=== PATIENT | female | born 1990 | race Caucasian/White ===

== ENCOUNTER 2021-09-19 13:48 | Emergency (ER) | payer SELFPAY ==
--- NOTE | 2021-09-19 14:45 | RAD REPORT ---
EXAM DESCRIPTION: Lorenza Harris (2 Views)09/19/2021 2:35 pm CLINICAL HISTORY: Cough COMPARISON: None FINDINGS: The lungs appear clear of acute infiltrate. The heart is normal size IMPRESSION: No acute abnormalities displayed
[2021-09-19 15:06] LABS: SARS-COV-2 RT PCR NEGATIVE (NEGATIVE)
--- NOTE | 2021-09-19 15:07 | ER ---
Nurse's Notes [facility] Name: Jhoana Em Age: 31 yrs Sex: Female : 1990 Arrival Date: 09/19/2021 Time: 13:51 Bed Waiting Private MD: Diagnosis: Acute upper respiratory infection, unspecified Presentation: 09/19 13:58 Chief complaint: Patient states: has had cold for a couple days and now feels heaviness iw in her chest and is coughing up green phlegm. Coronavirus screen: Client presents with at least one sign or symptom that may indicate coronavirus-19. Ebola Screen: Patient negative for fever greater than or equal to 101.5 degrees Fahrenheit, and additional compatible Ebola Virus Disease symptoms Patient denies exposure to infectious person. Patient denies travel to an Ebola-affected area in the 21 days before illness onset. No symptoms or risks identified at this time. Initial Sepsis Screen: Does the patient meet any 2 criteria? No. Patient's initial sepsis screen is negative. Does the patient have a suspected source of infection? No. Patient's initial sepsis screen is negative. Risk Assessment: Do you want to hurt yourself or someone else? Patient reports no desire to harm self or others. Onset of symptoms was September 17, 2021. 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 - Social history:: Smoking status: Patient/guardian denies using tobacco, the patient reports quitting approximately 10 years ago, Patient uses street drugs, marijuana. Screenin:08 Abuse screen: Denies threats or abuse. Denies injuries from another. Nutritional iw screening: No deficits noted. Tuberculosis screening: No symptoms or risk factors identified. Fall Risk None identified. Assessment: 14:07 General: Appears in no apparent distress. Behavior is calm, cooperative. Pain: iw Complains of pain in chest. Cardiovascular: Patient's skin is warm and dry. Respiratory: Reports cough that is Airway is patent Respiratory effort is even, unlabored, Respiratory pattern is regular, symmetrical, Breath sounds are clear bilaterally. Derm: Skin is intact, is healthy with good turgor. Musculoskeletal: Range of motion: intact in all extremities. Vital Signs: 13:58 BP 104 / 76; Pulse 85; Resp 18; Temp 97.6; Pulse Ox 100% on R/A; Weight 75.75 kg; iw Height 5 ft. 3 in. (160.02 cm); 13:58 Body Mass Index 29.58 (75.75 kg, 160.02 cm) iw ED Course: 13:51 Patient arrived in ED. mr 13:57 Aleyda Shah FNP-C is PHCP. kb 13:57 Ramos Otero MD is Attending Physician. kb 14:00 Triage completed. iw 14:02 Arm band placed on. iw 14:35 Chest Pa And Lat (2 Views) XRAY In Process Unspecified. EDMS 15:12 Cassi Friedman, RN is Primary Nurse. iw Administered Medications: No medications were administered Outcome: 15:07 Discharge ordered by . kb 15:12 Patient left the ED. iw Signatures: Dispatcher [employer] EDMS Aleyda Shah FNP-C FNP-Jovanny Sneha Whelan mr Cassi Friedman, RN RN iw
--- NOTE | 2021-09-19 15:08 | EDPHYS ---
Physician Documentation [facility] Name: Jhoana Em Age: 31 yrs Sex: Female : 1990 Arrival Date: 09/19/2021 Time: 13:51 Bed Waiting Private MD: ED Physician Ramos Otero HPI: 09/19 15:24 This 31 yrs old Female presents to ER via Ambulatory with complaints of Congestion, kb Cough. 15:24 The patient or guardian reports cough, that is intermittent, described as moderate. kb Onset: The symptoms/episode began/occurred yesterday. Severity of symptoms: At their worst the symptoms were moderate, in the emergency department the symptoms are unchanged. Modifying factors: The symptoms are alleviated by nothing, the symptoms are aggravated by nothing. Associated signs and symptoms: Pertinent positives: rhinorrhea, Pertinent negatives: chest pain, diarrhea, ear ache, fever, nausea, sore throat, vomiting. The patient has not experienced similar symptoms in the past. The patient has not recently seen a physician. Pt states she has had cough and congestion since yesterday. States she was coughing stuff up today so she wanted to make sure she didn't have pneumonia . 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 - Social history:: Smoking status: Patient/guardian denies using tobacco, the patient reports quitting approximately 10 years ago, Patient uses street drugs, marijuana. ROS: 15:24 Constitutional: Negative for fever, chills, and weight loss. kb 15:24 ENT: Positive for rhinorrhea, sinus congestion. 15:24 Respiratory: Positive for cough, Negative for dyspnea on exertion, hemoptysis, orthopnea, pleurisy, shortness of breath, sputum production, wheezing. 15:24 All other systems are negative. Exam: 15:24 Constitutional: This is a well developed, well nourished patient who is awake, alert, kb and in no acute distress. Head/Face: Normocephalic, atraumatic. ENT: Moist Mucous membranes Cardiovascular: Regular rate and rhythm with a normal S1 and S2. No gallops, murmurs, or rubs. No pulse deficits. Respiratory: Respirations even and unlabored. No increased work of breathing, no retractions or nasal flaring. Skin: Warm, dry with normal turgor. Normal color. MS/ Extremity: Pulses equal, no cyanosis. Neurovascular intact. Full, normal range of motion. Neuro: Awake and alert, GCS 15, oriented to person, place, time, and situation. Moves all extremities. Normal gait. Psych: Awake, alert, with orientation to person, place and time. Behavior, mood, and affect are within normal limits. Vital Signs: 13:58 BP 104 / 76; Pulse 85; Resp 18; Temp 97.6; Pulse Ox 100% on R/A; Weight 75.75 kg; iw Height 5 ft. 3 in. (160.02 cm); 13:58 Body Mass Index 29.58 (75.75 kg, 160.02 cm) iw MDM: 14:06 Patient medically screened. kb 15:22 Data reviewed: vital signs, nurses notes. Data interpreted: Pulse oximetry: on room air kb is 100 %. Interpretation: normal. Counseling: I had a detailed discussion with the patient and/or guardian regarding: the historical points, exam findings, and any diagnostic results supporting the discharge/admit diagnosis, lab results, radiology results, the need for outpatient follow up, a family practitioner, to return to the emergency department if symptoms worsen or persist or if there are any questions or concerns that arise at home. 09/19 14:07 Order name: COVID-19/FLU A+B (Document "Date of Onset" if Symptomatic) kb 09/19 14:08 Order name: COVID-19/FLU A+B; Complete Time: 15:07 EDMS 09/19 14:07 Order name: Chest Pa And Lat (2 Views) XRAY; Complete Time: 14:47 kb Administered Medications: No medications were administered Disposition: 17:58 Co-signature as Attending Physician, Ramos Otero MD I agree with the assessment and kdr plan of care. Disposition Summary: 09/19/21 15:07 Discharge Ordered Location: Home kb Condition: Stable kb Diagnosis - Acute upper respiratory infection, unspecified kb Followup: kb - With: Emergency Department - When: As needed - Reason: Worsening of condition Followup: kb - With: Private Physician - When: 2 - 3 days - Reason: Recheck today's complaints, Continuance of care, Re-evaluation by your physician Discharge Instructions: - Discharge Summary Sheet kb - Upper Respiratory Infection, Adult, [id number] kb - Viral Respiratory Infection, [id number] kb Forms: - Medication Reconciliation Form kb - Thank You Letter kb - Antibiotic Education kb - Prescription Opioid Use kb Signatures: Dispatcher [employer] EDAleyda Raymond, BOB-Colin ROJAS-Ramos Jacques MD MD kdr Williams, Irene, RN RN iw
[2021-09-19 15:46] VITALS: BP 104/76; TEMP 97.6; O2SAT 100
== END 2021-09-19 15:12 | disposition home or self-care (01) ==
LOC: ER 13:48
DX: J06.9 Acute upper respiratory infection, unspecified (principal); Z88.3 Allergy status to other anti-infective agents; Z20.822 Contact with and (suspected) exposure to COVID-19
CPT/HCPCS: 0240U; 71046; 99282

== ENCOUNTER 2021-09-21 23:21 | Emergency (ER) | payer SELFPAY ==
[2021-09-22] MEDS ORDERED: NA CHLORIDE 0.9% 1,000 ML ONE (01:38)
[2021-09-22] MEDS ORDERED: ALBUTEROL 2.5 MG/3 ML NEB SOL ONE (01:38)
[2021-09-22] MEDS ORDERED: IPRATROPIUM BROM 0.5MG/2.5ML ONE (01:38)
[2021-09-22 01:53] LABS: Protime INR 1.23
[2021-09-22 01:55] LABS: Absolute Lymphocytes (CBC) 1.2 K/uL (0.7-4.9); Hematocrit 42.3 % (36.0-45.0); Lymphocytes % 24.1 % (15.3-44.8); MPV 8.3 fL (7.6-11.3); RBC Red Blood Cell Count 4.92 M/uL (3.86-4.86)
[2021-09-22 02:09] LABS: Urine Blood Trace-intact (Negative); Urine Glucose Trace (Negative); Urine Protein Trace (Negative); Urine Specific Gravity 1.025 (1.005-1.030); Urine pH 6.5 (5.0-7.0)
[2021-09-22 02:22] LABS: ALT/SGPT 52 U/L (12-78); AST/SGOT 24 U/L (15-37); Alkaline Phosphatase 96 U/L (45-117); BUN Blood Urea Nitrogen 10 mg/dL (7-18); Bicarbonate 23 mmol/L (21-32); Bilirubin Direct 0.2 mg/dL (0-0.2); Bilirubin Total 0.4 mg/dL (0.2-1.0); Glucose Level 91 mg/dL (74-106); Magnesium 2.2 mg/dL (1.8-2.4); NT PRO-BNP 30 pg/mL (<125); Potassium 3.2 mmol/L (3.5-5.1); Sodium Level 138 mmol/L (136-145); Troponin (Emerg Dept Use Only) < 0.02 ng/mL (0.0-0.045)
[2021-09-22 02:54] LABS: Urine Specific Gravity/Preg 1.025 (1.005-1.030)
[2021-09-22] MEDS ORDERED: D5 0.9 NS 1,000 ML IV ONE (03:05)
[2021-09-22] MEDS ORDERED: CEFTRIAXONE 1000 MG/VIAL ONE (04:02)
[2021-09-22] MEDS ORDERED: POTASSIUM CL SA 10 MEQ TAB PO ONE (04:02)
[2021-09-22] MEDS ORDERED: AZITHROMYCIN 500 MG INJ IVPB ONE (04:03)
[2021-09-22] MEDS ORDERED: NA CHLORIDE 0.9% 250 ML ONE (04:03)
[2021-09-22] MEDS ORDERED: ONDANSETRON 4 MG/2 ML VIAL ONE (04:38)
--- NOTE | 2021-09-22 04:56 | ER ---
Nurse's Notes [facility] Name: Jhoana Em Age: 31 yrs Sex: Female : 1990 Arrival Date: 09/21/2021 Time: 23:48 Bed 18 Private MD: Diagnosis: Pneumonia;Hypokalemia Presentation: 09/22 00:08 Chief complaint: Patient states: Returning tonight for worsening cough, productive, lp1 brown flem, pain with breathing, and reported right arm heaviness; States seen here 2 days ago and diagnosed with URI. Coronavirus screen: The client reports previous COVID testing was negative. Date of collection: September 19, 2021. Ebola Screen: No symptoms or risks identified at this time. Risk Assessment: Do you want to hurt yourself or someone else? Patient reports no desire to harm self or others. Onset of symptoms was September 22, 2021. 00:08 Method Of Arrival: Ambulatory lp1 00:08 Acuity: JEANNETTE 3 lp1 00:10 Initial Sepsis Screen: Does the patient meet any 2 criteria? No. Patient's initial kc4 sepsis screen is negative. Does the patient have a suspected source of infection? No. Patient's initial sepsis screen is negative. Triage Assessment: 04:26 General: Appears uncomfortable, obese, well groomed, Behavior is calm, cooperative, kc4 appropriate for age. Respiratory: No deficits noted. Respiratory: Reports pain with cough Airway is patent Trachea midline Respiratory effort is even, unlabored. GI: No deficits noted. No signs and/or symptoms were reported involving the gastrointestinal system. : No deficits noted. No signs and/or symptoms were reported regarding the genitourinary system. Derm: No deficits noted. No signs and/or symptoms reported regarding the dermatologic system. Musculoskeletal: No deficits noted. No signs and/or symptoms reported regarding the musculoskeletal system. 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 - Social history:: Smoking status: Patient denies any tobacco usage or history of. Patient uses street drugs, marijuana. Screenin:10 Abuse screen: Denies threats or abuse. Denies injuries from another. Nutritional lp1 screening: No deficits noted. Tuberculosis screening: No symptoms or risk factors identified. Fall Risk None identified. Assessment: 02:12 Pain: Complains of pain in generalized Pain does not radiate. Pain currently is 5 out kc4 of 10 on a pain scale. at worst was 5 out of 10 on a pain scale. level that patient reports is acceptable is 0 out of 10 on a pain scale. Quality of pain is described as pressure, Pain began gradually, 2-3 days ago. Is episodic, Alleviated by medications, rest, Aggravated by exercise, increased activity, Noted to be restless. Neuro: No deficits noted. Level of Consciousness is awake, alert, obeys commands, confused, Oriented to person, place, time, situation, Appropriate for age. Respiratory: Airway is patent Respiratory effort is even, labored, with nasal flaring, Respiratory pattern is tachypnea Sputum is blood streaked, Breath sounds with crackles bilaterally. Breath sounds with wheezes Onset: The symptoms/episode began/occurred gradually, the patient has moderate shortness of breath Denies air hunger. GI: No deficits noted. No signs and/or symptoms were reported involving the gastrointestinal system. : No deficits noted. No signs and/or symptoms were reported regarding the genitourinary system. EENT: No deficits noted. No signs and/or symptoms were reported regarding the EENT system. Derm: No deficits noted. No signs and/or symptoms reported regarding the dermatologic system. Musculoskeletal: No deficits noted. No signs and/or symptoms reported regarding the musculoskeletal system. 02:12 Cardiovascular: Rhythm is sinus rhythm. kc4 04:27 Reassessment: Patient and/or family updated on plan of care and expected duration. Pain kc4 level reassessed. Patient is alert, oriented x 3, equal unlabored respirations, skin warm/dry/pink. Patient states symptoms have improved. Vital Signs: 00:11 BP 124 / 84; Pulse 64; Resp 20; Temp 98(O); Pulse Ox 99% on R/A; Weight 75.75 kg (R); lp1 Height 5 ft. 3 in. (160.02 cm); 02:20 BP 110 / 81; Pulse 88; Resp 22; Temp 98.7(O); Pulse Ox 100% on R/A; Pain 4/10; kc4 03:30 BP 108 / 81; Pulse 76; Resp 18; Temp 98.7(O); Pulse Ox 100% on R/A; Pain 0/10; kc4 04:25 BP 118 / 78; Pulse 78; Resp 18; Temp 98.7(O); Pulse Ox 100% on R/A; Pain 0/10; kc4 05:00 BP 121 / 76; Pulse 80; Resp 18; Temp 98.9(O); Pulse Ox 99% on R/A; Pain 0/10; kc4 00:11 Body Mass Index 29.58 (75.75 kg, 160.02 cm) lp1 [place] Coma Score: 02:12 Eye Response: spontaneous(4). Verbal Response: oriented(5). Motor Response: obeys kc4 commands(6). Total: 15. ED Course: 09/21 23:48 Patient arrived in ED. cf2 09/22 00:10 Triage completed. lp1 00:10 Arm band placed on. lp1 01:03 Jerad Nicole MD is Attending Physician. 7 01:09 Charlette Mendez is Primary Nurse. kc4 01:37 Basic Metabolic Panel Sent. mw2 01:37 CBC with Diff Sent. mw2 01:37 LFT's Sent. mw2 01:37 Magnesium Sent. mw2 01:37 NT PRO-BNP Sent. mw2 01:37 PT-INR Sent. mw2 01:37 Troponin (emerg Dept Use Only) Sent. mw2 02:00 Basic Metabolic Panel Sent. kc4 02:00 Inserted saline lock: 20 gauge in right antecubital area, using aseptic technique. kc4 Blood collected. 02:01 CBC with Diff Sent. kc4 02:01 LFT's Sent. kc4 02:01 Magnesium Sent. kc4 02:01 NT PRO-BNP Sent. kc4 02:01 PT-INR Sent. kc4 02:01 Troponin (emerg Dept Use Only) Sent. kc4 02:12 Patient has correct armband on for positive identification. Placed in gown. Bed in low kc4 position. Call light in reach. Side rails up X 1. compliance monitor on. Pulse ox on. NIBP on. Door closed. Noise minimized. Warm blanket given. 02:20 Nebulizer treatment administered. kc4 02:46 CT Chest For PE Angio In Process Unspecified. EDMS 04:24 Blood Culture Adult (2) Sent. kc4 04:51 Inserted saline lock: 22 gauge in left antecubital area, using aseptic technique. lp1 04:59 Blood Culture Adult (2) Sent. kc4 05:59 IV discontinued, No redness/swelling at site. Pressure dressing applied. lp1 Administered Medications: 02:00 Drug: NS 0.9% 1000 ml Route: IV; Rate: 1000 ml; Site: right antecubital; kc4 02:11 Follow up: Response: No adverse reaction; IV Status: Completed infusion kc4 02:00 Drug: Albuterol 2.5 mg Route: Inhalation; kc4 02:11 Follow up: Response: Wheezing diminished kc4 02:00 Drug: AtroVENT (ipratropium) Aerosol 0.5 mg Route: Inhalation; kc4 02:11 Follow up: Response: Wheezing diminished kc4 03:06 Drug: D5-NS 1000 ml Route: IV; Rate: per protocol; Site: right antecubital; kc4 06:00 Follow up: IV Status: Completed infusion; IV Intake: 1000ml lp1 04:24 Drug: Potassium Chloride 40 mEq Route: PO; kc4 04:24 Drug: Rocephin (cefTRIAXone) 1 grams Route: IV; Rate: per protocol; Site: right kc4 antecubital; 04:24 Follow up: Response: No adverse reaction kc4 04:24 Drug: Zithromax (azithromycin) 500 mg Route: IVPB; Infused Over: 1 hrs; Site: right kc4 antecubital; 05:59 Follow up: IV Status: Completed infusion lp1 04:59 Drug: Zofran (Ondansetron) 4 mg Route: IVP; Site: right antecubital; kc4 04:59 Follow up: Response: Nausea is decreased kc4 Intake: 06:00 IV: 1000ml; Total: 1000ml. lp1 Outcome: 04:55 Discharge ordered by . 7 05:59 Discharged to home ambulatory, with significant other. lp1 05:59 Condition: good 05:59 Discharge instructions given to patient, Instructed on discharge instructions, follow up and referral plans. medication usage, Demonstrated understanding of instructions, follow-up care, medications, Prescriptions given X 3. 06:00 Patient left the ED. lp1 Signatures: Dispatcher [employer] EDMS Megha Noble RN RN lp1 Zuleyma Yan 2 Monica Hughes 2 Jerad Nicole MD MD 7 Charlette Mendez kc4 Corrections: (The following items were deleted from the chart) 00:14 00:11 Pulse 64bpm; Resp 20bpm; Pulse Ox 99% RA; Temp 98F Oral; 75.75 kg Reported; lp1 Height 5 ft. 3 in.; BMI: 29.5; lp1 02:22 02:20 BP 110 / 81; Pulse 22bpm; Resp 88bpm; Pulse Ox 100% RA; Temp 98.7F Oral; Pain kc4 02/08; kc4
--- NOTE | 2021-09-22 04:56 | EDPHYS ---
Physician Documentation [facility] Name: Jhoana Em Age: 31 yrs Sex: Female : 1990 Arrival Date: 09/21/2021 Time: 23:48 Bed 18 Private MD: ED Physician Jerad Nicole HPI: 09/22 01:25 This 31 yrs old Female presents to ER via Ambulatory with complaints of Productive mh7 Cough, Arm Problem, shortness of breath. 01:25 The patient or guardian reports cough, that is intermittent, described as moderate, mh7 with productive sputum, brownish, difficulty breathing. Onset: The symptoms/episode began/occurred 4 day(s) ago. Severity of symptoms: At their worst the symptoms were moderate, yesterday, in the emergency department the symptoms are unchanged. Modifying factors: The symptoms are alleviated by nothing, the symptoms are aggravated by nothing. Associated signs and symptoms: Pertinent positives: chest pain, with cough, with breathing, nausea, rhinorrhea, vomiting, Right arm pain worse with coughing, Pertinent negatives: diarrhea, fever, sore throat. The patient has been recently seen at the [facility] Emergency Department, this week. DIRECT CARE PROFESSIONAL: 00:10 LMP N/A - control method lp1 Historical: - Allergies: 00:10 Clindamycin; lp1 - Home Meds: 00:10 OTC inhaler [Active]; lp1 - PMHx: 00:10 Asthma; lp1 - PSHx: 00:10 None; lp1 - Immunization history:: Adult Immunizations up to date. - Social history:: Smoking status: Patient denies any tobacco usage or history of. Patient uses street drugs, marijuana. ROS: 01:25 Constitutional: Negative for fever, chills, and weight loss, Eyes: Negative for injury, mh7 pain, redness, and discharge, ENT: Negative for injury, pain, and discharge, Neck: Negative for injury, pain, and swelling, Abdomen/GI: Negative for abdominal pain, nausea, vomiting, diarrhea, and constipation, Back: Negative for injury and pain, : Negative for injury, bleeding, discharge, and swelling, Skin: Negative for injury, rash, and discoloration, Neuro: Negative for headache, weakness, numbness, tingling, and seizure, Psych: Negative for depression, anxiety, suicide ideation, homicidal ideation, and hallucinations, Allergy/Immunology: Negative for hives, rash, and allergies, Endocrine: Negative for neck swelling, polydipsia, polyuria, polyphagia, and marked weight changes, Hematologic/Lymphatic: Negative for swollen nodes, abnormal bleeding, and unusual bruising. Exam: 01:25 Constitutional: The patient appears in no acute distress, alert, awake, uncomfortable. mh7 01:25 Head/Face: Normocephalic, atraumatic. Eyes: Pupils equal round and reactive to light, mh7 extra-ocular motions intact. Lids and lashes normal. Conjunctiva and sclera are non-icteric and not injected. Cornea within normal limits. Periorbital areas with no swelling, redness, or edema. ENT: Nares patent. No nasal discharge, no septal abnormalities noted. Tympanic membranes are normal and external auditory canals are clear. Oropharynx with no redness, swelling, or masses, exudates, or evidence of obstruction, uvula midline. Mucous membranes moist. Neck: Trachea midline, no thyromegaly or masses palpated, and no cervical lymphadenopathy. Supple, full range of motion without nuchal rigidity, or vertebral point tenderness. No Meningismus. Chest/axilla: Normal chest wall appearance and motion. Nontender with no deformity. No lesions are appreciated. Cardiovascular: Regular rate and rhythm with a normal S1 and S2. No gallops, murmurs, or rubs. Normal PMI, no JVD. No pulse deficits. 01:25 Abdomen/GI: Soft, non-tender, with normal bowel sounds. No distension or tympany. No guarding or rebound. No evidence of tenderness throughout. Back: No spinal tenderness. No costovertebral tenderness. Full range of motion. Skin: Warm, dry with normal turgor. Normal color with no rashes, no lesions, and no evidence of cellulitis. MS/ Extremity: Pulses equal, no cyanosis. Neurovascular intact. Full, normal range of motion. Neuro: Awake and alert, GCS 15, oriented to person, place, time, and situation. Cranial nerves II-XII grossly intact. Motor strength 5/5 in all extremities. Sensory grossly intact. Cerebellar exam normal. Normal gait. Psych: Awake, alert, with orientation to person, place and time. Behavior, mood, and affect are within normal limits. 01:25 Respiratory: the patient does not display signs of respiratory distress, Respirations: prolonged exhalation, that is mild, Breath sounds: rhonchi, that are mild, are scattered, wheezing: expiratory that is mild, is scattered, Respiratory rate: 20 Vital Signs: 00:11 BP 124 / 84; Pulse 64; Resp 20; Temp 98(O); Pulse Ox 99% on R/A; Weight 75.75 kg (R); lp1 Height 5 ft. 3 in. (160.02 cm); 02:20 BP 110 / 81; Pulse 88; Resp 22; Temp 98.7(O); Pulse Ox 100% on R/A; Pain 4/10; kc4 03:30 BP 108 / 81; Pulse 76; Resp 18; Temp 98.7(O); Pulse Ox 100% on R/A; Pain 0/10; kc4 04:25 BP 118 / 78; Pulse 78; Resp 18; Temp 98.7(O); Pulse Ox 100% on R/A; Pain 0/10; kc4 05:00 BP 121 / 76; Pulse 80; Resp 18; Temp 98.9(O); Pulse Ox 99% on R/A; Pain 0/10; kc4 00:11 Body Mass Index 29.58 (75.75 kg, 160.02 cm) lp1 Elizabeth Coma Score: 02:12 Eye Response: spontaneous(4). Verbal Response: oriented(5). Motor Response: obeys kc4 commands(6). Total: 15. MDM: 04:53 Differential Diagnosis: Bronchitis Influenza Upper Respiratory Infection Allergic mh7 Rhinitis Asthma Exacerbation Viral Syndrome Pneumonia. Data reviewed: vital signs, nurses notes, old medical records, lab test result(s), CBC, electrolytes, EKG, radiologic studies, CT scan. Data interpreted: Pulse oximetry: on room air is 100 %. Interpretation: normal. Counseling: I had a detailed discussion with the patient and/or guardian regarding: the historical points, exam findings, and any diagnostic results supporting the discharge/admit diagnosis, lab results, radiology results, the need for outpatient follow up, to return to the emergency department if symptoms worsen or persist or if there are any questions or concerns that arise at home. Response to treatment: the patient's symptoms have markedly improved after treatment. Refusal of service: The patient/guardian displays adequate decision making capability and despite a detailed discussion of alternatives, benefits, risks, and consequences refuses: Admission to the hospital for further work-up and treatment. 04:55 Patient medically screened. [facility] 09/22 01:17 Order name: Basic Metabolic Panel; Complete Time: 02:45 [facility] 09/22 01:17 Order name: CBC with Diff; Complete Time: 02:45 [facility] 09/22 01:17 Order name: LFT's; Complete Time: 02:45 [facility] 09/22 01:17 Order name: Magnesium; Complete Time: 02:45 [facility] 09/22 01:17 Order name: NT PRO-BNP; Complete Time: 02:45 [facility] 09/22 01:17 Order name: PT-INR; Complete Time: 02:45 [facility] 09/22 01:17 Order name: Troponin (emerg Dept Use Only); Complete Time: 02:45 [facility] 09/22 01:19 Order name: CT Chest For PE Angio [facility] 09/22 02:09 Order name: Urine Dipstick-Ancillary; Complete Time: 02:45 [facility] 09/22 02:23 Order name: Urine --Ancillary (enter results); Complete Time: 03:17 [facility] 09/22 02:57 Order name: CREATININE WHOLE BLOOD; Complete Time: 03:17 [facility] 09/22 03:57 Order name: Blood Culture Adult (2) [facility] 09/22 01:17 Order name: EKG; Complete Time: 01:18 [facility] 09/22 01:17 Order name: Cardiac monitoring; Complete Time: 02:01 [facility] 09/22 01:17 Order name: EKG - Nurse/Tech; Complete Time: 02:23 [facility] 09/22 01:17 Order name: IV Saline Lock; Complete Time: 02:00 [facility] 09/22 01:17 Order name: Labs collected and sent; Complete Time: 02:00 [facility] 09/22 01:17 Order name: O2 Per Protocol; Complete Time: 02:00 [facility] 09/22 01:17 Order name: O2 Sat Monitoring; Complete Time: 02:00 [facility] 09/22 01:18 Order name: Urine Dipstick-Ancillary (obtain specimen); Complete Time: 02:12 [facility] 09/22 01:18 Order name: Urine Test (obtain specimen); Complete Time: 02:12 [facility] Administered Medications: 02:00 Drug: NS 0.9% 1000 ml Route: IV; Rate: 1000 ml; Site: right antecubital; kc4 02:11 Follow up: Response: No adverse reaction; IV Status: Completed infusion kc4 02:00 Drug: Albuterol 2.5 mg Route: Inhalation; kc4 02:11 Follow up: Response: Wheezing diminished kc4 02:00 Drug: AtroVENT (ipratropium) Aerosol 0.5 mg Route: Inhalation; kc4 02:11 Follow up: Response: Wheezing diminished kc4 03:06 Drug: D5-NS 1000 ml Route: IV; Rate: per protocol; Site: right antecubital; kc4 06:00 Follow up: IV Status: Completed infusion; IV Intake: 1000ml lp1 04:24 Drug: Potassium Chloride 40 mEq Route: PO; kc4 04:24 Drug: Rocephin (cefTRIAXone) 1 grams Route: IV; Rate: per protocol; Site: right kc4 antecubital; 04:24 Follow up: Response: No adverse reaction kc4 04:24 Drug: Zithromax (azithromycin) 500 mg Route: IVPB; Infused Over: 1 hrs; Site: right kc4 antecubital; 05:59 Follow up: IV Status: Completed infusion lp1 04:59 Drug: Zofran (Ondansetron) 4 mg Route: IVP; Site: right antecubital; kc4 04:59 Follow up: Response: Nausea is decreased 4 Disposition Summary: 09/22/21 04:55 Discharge Ordered Location: Home [facility] Problem: new [facility] Symptoms: have improved [facility] Condition: Stable [facility] Diagnosis - Pneumonia [facility] - Hypokalemia [facility] Followup: [facility] - With: Private Physician - When: 1 - 2 days - Reason: Worsening of condition, Recheck today's complaints, Continuance of care, Re-evaluation by your physician Discharge Instructions: - Discharge Summary Sheet [facility] - Community-Acquired Pneumonia, Adult, [id number] [facility] - Hypokalemia [facility] Forms: - Medication Reconciliation Form [facility] - Thank You Letter [facility] - Antibiotic Education [facility] - Prescription Opioid Use [facility] Prescriptions: - albuterol sulfate 90 mcg/actuation Inhalation HFA aerosol inhaler - inhale 2 puff by INHALATION route every 6 hours As needed; 1 Inhaler; Refills: mh7 0, Product Selection Permitted - Tessalon Perles 100 mg Oral Capsule - take 1 capsule by ORAL route every 8 hours As needed; 15 capsule; Refills: 0, mh7 Product Selection Permitted - Zithromax Z-Wai 250 mg Oral Tablet - take 1 tablet by ORAL route as directed for 5 days Day 1 - take two (2) tablets mh7 one time. Day 2, 3, 4 , 5 take one (1) tablet once daily.; 6 tablet; Refills: 0, Product Selection Permitted Signatures: Dispatcher [employer] Megha Valladares RN RN lp1 Jerad Nicole MD MD 7 Charlette Mendez4
[2021-09-22 06:23] VITALS: BP 121/76; TEMP 98.9; O2SAT 99
--- NOTE | 2021-09-22 11:30 | RAD REPORT ---
EXAM DESCRIPTION: CT CHEST ANGIOGRAPHY WITH IV CONTRAST CLINICAL HISTORY: SOB COMPARISON: None Available TECHNIQUE: Multiple helical axial tomographic images were obtained of the chest following administra tion of intravenous contrast per angiographic protocol. MIP reformatted images were obtained. This exam was performed according to our departmental dose-optimization program, which includes autom ated exposure control, adjustment of the mA and/or kV according to patient size and/or use of iterati ve reconstruction technique. FINDINGS: Thyroid gland: unremarkable. Axilla: unremarkable. Pulmonary arteries: Pulmonary arteries appear patent. No evidence of pulmonary embolism. Aorta: No evidence of aortic dissection or aneurysm. Mediastinum: There are a few mildly enlarged left hilar lymph nodes which are likely reactive. Heart: Heart is normal in size. Lungs/airways: There is an area of patchy groundglass and tree-in-bud opacity in the left upper lobe. A few small groundglass opacities in both lower lobes are present. Airways are patent. Pleural spaces: No significant pleural effusion. No pneumothorax. Osseous: Unremarkable. Soft tissues: Unremarkable. Visualized abdomen: Unremarkable. IMPRESSION: 1. No evidence of pulmonary embolism. 2. Opacities in the left upper lobe and to a lesser extent both lower lobes suggestive of pneumonia . Electronically signed by: Timbo Summers MD 09/22/2021 3:47 AM CAR SALESMAN Due to temporary technical issues with the PACS/Fluency reporting system, reports are being signed by the in house radiologist without review as a courtesy to ensure prompt reporting. The interpreting r adiologist is fully responsible for the content of the report.
--- NOTE | 2021-09-24 08:10 | EKG ---
Test Date: 2021-09-22 Test Time: 02:12:32 Lead Accountant: [employer] MEASUREMENT RESULTS: Intervals: Rate: 76 LA: 122 QRSD: 76 QT: 368 QTc: 414 Enigma: P: 50 LA: 122 QRS: 30 T: 52 INTERPRETIVE STATEMENTS: Normal sinus rhythm with sinus arrhythmia Cannot rule out Anterior infarct, age undetermined Abnormal ECG No previous ECG available for comparison Electronically Signed On 09-24-21 08:04:00 TACTICAL DEBRIEFER by Steven Urban
== END 2021-09-22 06:00 | disposition home or self-care (01) ==
LOC: ER 23:21
DX: J18.9 Pneumonia, unspecified organism (principal); E87.6 Hypokalemia
CPT/HCPCS: 36415; 71275; 80048; 80076; 81003; 81025; 82565; 83735; 83880; 84484; 85025; 85610; 87040; 93005; 96361; 96365; 96366; 96375; 99285; J0456; J2405; J7030; J7042; J7050; Q9967

== ENCOUNTER 2022-07-20 05:25 | Emergency (ER) | payer SELFPAY ==
[2022-07-20 06:08] LABS: Urine Blood 2+ (Negative); Urine Glucose Negative (Negative); Urine Protein Negative (Negative); Urine Specific Gravity >=1.030 (1.005-1.030); Urine pH 6.5 (5.0-7.0)
--- NOTE | 2022-07-20 06:19 | EDPHYS ---
Physician Documentation [facility] Name: Jhoana Em Age: 32 yrs Sex: Female : 1990 Arrival Date: 07/20/2022 Time: 05:29 Bed 8 Private MD: ED Physician Ray Martins HPI: 07/20 06:15 This 32 yrs old Female presents to ER via Ambulatory with complaints of perez Rectal Bleeding, Hemorrhoids. 06:15 The patient presents to the emergency department with bleeding from the rectum/anus, perez that is mild, pain in the rectal area, that is moderate. Onset: The symptoms/episode began/occurred yesterday. Context: the patient has no known special context relating to the rectal area complaint(s). Modifying factors: The symptoms are alleviated by nothing, The symptoms are aggravated by sitting position. Associate signs and symptoms: The patient has no apparent associated signs or symptoms. The patient has not experienced similar symptoms in the past. Historical: - Allergies: 05:41 Clindamycin; kl - Home Meds: 05:41 OTC inhaler [Active]; kl - PMHx: 05:41 Asthma; kl - Immunization history:: Adult Immunizations not up to date. - Social history:: Smoking status: Patient denies any tobacco usage or history of. ROS: 06:16 Constitutional: Negative for fever, chills, and weight loss, Eyes: Negative for injury, perez pain, redness, and discharge, ENT: Negative for injury, pain, and discharge, Neck: Negative for injury, pain, and swelling, Cardiovascular: Negative for chest pain, palpitations, and edema, Respiratory: Negative for shortness of breath, cough, wheezing, and pleuritic chest pain, Back: Negative for injury and pain, : Negative for injury, bleeding, discharge, and swelling, MS/Extremity: Negative for injury and deformity, Skin: Negative for injury, rash, and discoloration, Neuro: Negative for headache, weakness, numbness, tingling, and seizure, Psych: Negative for depression, anxiety, suicide ideation, homicidal ideation, and hallucinations, Allergy/Immunology: Negative for hives, rash, and allergies, Endocrine: Negative for neck swelling, polydipsia, polyuria, polyphagia, and marked weight changes, Hematologic/Lymphatic: Negative for swollen nodes, abnormal bleeding, and unusual bruising. 06:16 Abdomen/GI: Positive for rectal bleeding. Exam: 06:16 Constitutional: This is a well developed, well nourished patient who is awake, alert, perez and in no acute distress. Head/Face: Normocephalic, atraumatic. Eyes: Pupils equal round and reactive to light, extra-ocular motions intact. Lids and lashes normal. Conjunctiva and sclera are non-icteric and not injected. Cornea within normal limits. Periorbital areas with no swelling, redness, or edema. ENT: Nares patent. No nasal discharge, no septal abnormalities noted. Tympanic membranes are normal and external auditory canals are clear. Oropharynx with no redness, swelling, or masses, exudates, or evidence of obstruction, uvula midline. Mucous membranes moist. Neck: Trachea midline, no thyromegaly or masses palpated, and no cervical lymphadenopathy. Supple, full range of motion without nuchal rigidity, or vertebral point tenderness. No Meningismus. Chest/axilla: Normal chest wall appearance and motion. Nontender with no deformity. No lesions are appreciated. Cardiovascular: Regular rate and rhythm with a normal S1 and S2. No gallops, murmurs, or rubs. Normal PMI, no JVD. No pulse deficits. Respiratory: Lungs have equal breath sounds bilaterally, clear to auscultation and percussion. No rales, rhonchi or wheezes noted. No increased work of breathing, no retractions or nasal flaring. Back: No spinal tenderness. No costovertebral tenderness. Full range of motion. Female : Normal external genitalia. Skin: Warm, dry with normal turgor. Normal color with no rashes, no lesions, and no evidence of cellulitis. MS/ Extremity: Pulses equal, no cyanosis. Neurovascular intact. Full, normal range of motion. Neuro: Awake and alert, GCS 15, oriented to person, place, time, and situation. Cranial nerves II-XII grossly intact. Motor strength 5/5 in all extremities. Sensory grossly intact. Cerebellar exam normal. Normal gait. Psych: Awake, alert, with orientation to person, place and time. Behavior, mood, and affect are within normal limits. 06:16 Abdomen/GI: Inspection: abdomen appears normal, Bowel sounds: normal, Palpation: Rectal exam: rectal tone normal, hemorrhoid(s), external, with associated bleeding, with pain, with thrombosis, the exam is chaperoned by the nurse, Liver: no appreciated palpable abnormalities, Hernia: not appreciated. Vital Signs: 05:38 BP 111 / 75; Pulse 75; Resp 16; Temp 97.4(O); Pulse Ox 100% on R/A; Pain 4/10; kl MDM: 05:40 Patient medically screened. [facility] 07/20 06:09 Order name: Urine Dipstick-Ancillary EDMS 07/20 05:38 Order name: Urine Dipstick-Ancillary (obtain specimen); Complete Time: 06:25 mw2 07/20 05:38 Order name: Urine Test (obtain specimen); Complete Time: 06:25 mw2 Administered Medications: 06:37 Drug: Anusol-HC Suppository 25 mg 25 mg Route: [place]; ke1 06:41 Follow up: Response: Medication administered at discharge. ke1 06:37 Drug: Cipro (ciprofloxacin) 500 mg Route: PO; ke1 06:41 Follow up: Response: Medication administered at discharge. ke1 06:37 Drug: Motrin (ibuprofen) 600 mg Route: PO; ke1 06:41 Follow up: Response: Medication administered at discharge. ke1 Disposition Summary: 07/20/22 06:19 Discharge Ordered Location: Home perez Problem: new perez Symptoms: have improved perez Condition: Stable perez Diagnosis - Unspecified hemorrhoids - small, thrombosed and bleeding perez Followup: perez - With: Private Physician - When: 2 - 3 days - Reason: Recheck today's complaints, Continuance of care, Re-evaluation by your physician Followup: perez - With: Bertrand Otero MD - When: 2 - 3 days - Reason: Recheck today's complaints, Continuance of care, Re-evaluation by your physician Discharge Instructions: - Discharge Summary Sheet perez - High-Fiber Diet perez - Hemorrhoids perez - How to Take a Sitz Bath perez - Hemorrhoids, [id number] perez Forms: - Medication Reconciliation Form perez - Thank You Letter perez - Antibiotic Education perez - Prescription Opioid Use perez Prescriptions: - Colace 100 mg Oral Tablet - take 1 tablet by ORAL route every 12 hours; 14 tablet; Refills: 0, Product perez Selection Permitted - Cipro 500 mg Oral Tablet - take 1 tablet by ORAL route every 12 hours for 7 days; 14 tablet; Refills: 0, [facility] Product Selection Permitted - Anusol-HC 25 mg Rectal Suppository - insert 1 suppository by RECTAL route every 12 hours As needed; 20 suppository; [facility] Refills: 0, Product Selection Permitted - Ibuprofen 600 mg Oral Tablet - take 1 tablet by ORAL route every 6 hours As needed take with food; 20 tablet; [facility] Refills: 0, Product Selection Permitted Signatures: Jessi Montelongo, RN Ray Serrato MD MD cha Westbrook, MyKena mw2 Rolando Xiao RN RN ke1
--- NOTE | 2022-07-20 06:19 | ER ---
Nurse's Notes [facility] Name: Jhoana Em Age: 32 yrs Sex: Female : 1990 Arrival Date: 07/20/2022 Time: 05:29 Bed 8 Private MD: Diagnosis: Unspecified hemorrhoids-small, thrombosed and bleeding Presentation: 07/20 05:38 Chief complaint: Patient states: hemorroid bleedign since 6 pm yesterday pt reports kl changed dressing x 3 VS sitting 117/79 pulse 70 standing 111/75 pulse 75. Coronavirus screen: Vaccine status: Patient reports being unvaccinated. Ebola Screen: Patient negative for fever greater than or equal to 101.5 degrees Fahrenheit, and additional compatible Ebola Virus Disease symptoms. Initial Sepsis Screen: Does the patient meet any 2 criteria? No. Patient's initial sepsis screen is negative. Does the patient have a suspected source of infection? No. Patient's initial sepsis screen is negative. Risk Assessment: Do you want to hurt yourself or someone else? Patient reports no desire to harm self or others. Onset of symptoms was July 19, 2022 at 18:00. 05:38 Method Of Arrival: Ambulatory 05:38 Acuity: JEANNETTE 4 kl Triage Assessment: 05:41 General: Appears in no apparent distress. comfortable, Behavior is calm, cooperative. kl Pain: Complains of pain in rectum. Historical: - Allergies: 05:41 Clindamycin; kl - Home Meds: 05:41 OTC inhaler [Active]; kl - PMHx: 05:41 Asthma; kl - Immunization history:: Adult Immunizations not up to date. - Social history:: Smoking status: Patient denies any tobacco usage or history of. Screenin:54 Abuse screen: Denies threats or abuse. Denies injuries from another. Nutritional ll3 screening: No deficits noted. Tuberculosis screening: No symptoms or risk factors identified. Fall Risk None identified. Assessment: 05:54 General: Appears uncomfortable, Behavior is calm, cooperative. Pain: Complains of pain ll3 in buttocks Pain does not radiate. Pain currently is 4 out of 10 on a pain scale. Pain began 2-3 days ago. Is continuous, Aggravated by BM. Neuro: Level of Consciousness is awake, alert, obeys commands, Oriented to person, place, time, situation, Reports dizziness. Respiratory: Respiratory effort is even, unlabored, Respiratory pattern is regular, symmetrical. GI: Reports nausea. GI: Reports Bleeding hemorrhoid. Derm: Skin is pink, warm \T\ dry. 06:30 Pain: Complains of pain in anus Pain currently is 4 out of 10 on a pain scale. ke1 Vital Signs: 05:38 BP 111 / 75; Pulse 75; Resp 16; Temp 97.4(O); Pulse Ox 100% on R/A; Pain 4/10; ED Course: 05:29 Patient arrived in ED. bp1 05:30 Ray Martins MD is Attending Physician. [facility] 05:40 Rolando Xiao RN is Primary Nurse. ke1 05:41 Triage completed. 05:54 Patient has correct armband on for positive identification. Bed in low position. Call ll3 light in reach. Side rails up X 1. 05:56 Arm band placed on Patient placed in an exam room, on a stretcher, on pulse oximetry. 3 06:18 Bertrand Otero MD is Referral Physician. [facility] 06:38 No provider procedures requiring assistance completed. Patient did not have IV access ke1 during this emergency room visit. Administered Medications: 06:37 Drug: Anusol-HC Suppository 25 mg 25 mg Route: UT; ke1 06:41 Follow up: Response: Medication administered at discharge. ke1 06:37 Drug: Cipro (ciprofloxacin) 500 mg Route: PO; ke1 06:41 Follow up: Response: Medication administered at discharge. ke1 06:37 Drug: Motrin (ibuprofen) 600 mg Route: PO; ke1 06:41 Follow up: Response: Medication administered at discharge. ke1 Medication: 06:41 VIS not applicable for this client. ke1 Outcome: 06:19 Discharge ordered by . [facility] 06:40 Discharged to home ambulatory. ke1 06:40 Condition: good 06:40 Discharge instructions given to patient. 06:42 Patient left the ED. ke1 Signatures: Jessi Montelongo, RN RN Ray Faye MD MD cha Paniauga, Brittany bp1 Teresa Lockhart RN RN 3 Rolando Xiao RN RN ke1
[2022-07-20] MEDS ORDERED: CIPROFLOXACIN HCL 500 MG TAB ONE (06:36)
[2022-07-20] MEDS ORDERED: HYDROCORTISONE ACETATE 25MG SUPP PR ONE (06:37)
[2022-07-20] MEDS ORDERED: IBUPROFEN 400 MG TAB ONE (06:41)
[2022-07-20] MEDS ORDERED: IBUPROFEN 200 MG TAB PO ONE (06:41)
[2022-07-21 13:44] VITALS: BP 111/75; TEMP 97.4; O2SAT 100
== END 2022-07-20 06:42 | disposition home or self-care (01) ==
LOC: ER 05:25
DX: K64.5 Perianal venous thrombosis (principal)
CPT/HCPCS: 81003; 99283

== ENCOUNTER 2022-10-14 08:37 | Emergency (ER) | payer SELFPAY ==
[2022-10-14 09:57] LABS: SARS-COV-2 RT PCR NEGATIVE (NEGATIVE)
--- NOTE | 2022-10-14 10:12 | ER ---
Nurse's Notes [facility] Name: Jhoana Em Age: 32 yrs Sex: Female : 1990 Arrival Date: 10/14/2022 Time: 08:40 Bed DIS3 Private MD: Diagnosis: Acute pharyngitis, unspecified Presentation: 10/14 08:51 Chief complaint: Patient states: renetta had strep before and i think that's what i have; ss there is bumps in the back of my throat, my tonsils hurt, and I have like white thrush looking on the very back of my tongue and throat I noticed this morning. My sore throat just started 3 days ago. Coronavirus screen: Vaccine status: Patient reports being unvaccinated. Client denies travel out of the [place] in the last 14 days. Ebola Screen: Patient negative for fever greater than or equal to 101.5 degrees Fahrenheit, and additional compatible Ebola Virus Disease symptoms Patient denies exposure to infectious person. Patient denies travel to an Ebola-affected area in the 21 days before illness onset. Initial Sepsis Screen: Does the patient meet any 2 criteria? No. Patient's initial sepsis screen is negative. Does the patient have a suspected source of infection? No. Patient's initial sepsis screen is negative. Risk Assessment: Do you want to hurt yourself or someone else? Patient reports no desire to harm self or others. 08:51 Method Of Arrival: Ambulatory ss 08:51 Acuity: JEANNETTE 4 ss Triage Assessment: 08:54 General: Appears in no apparent distress. uncomfortable, Behavior is calm, cooperative, ss appropriate for age. Pain: Complains of pain in throat. 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 - Social history:: Smoking status: Patient denies any tobacco usage or history of. Screenin:21 [facility] ED Fall Risk Assessment (Adult) History of falling in the last 3 months, ss including since admission No falls in past 3 months (0 pts) Confusion or Disorientation No (0 pts) Intoxicated or Sedated No (0 pts) Impaired Gait No (0 pts) Mobility Assist Device Used No (0 pt) Altered Elimination No (0 pt) Score/Fall Risk Level 0 - 2 = Low Risk. Abuse screen: Denies threats or abuse. Denies injuries from another. Nutritional screening: No deficits noted. Tuberculosis screening: Never had TB. Fall Risk No fall in past 12 months (0 pts). Assessment: 10:21 General: Appears in no apparent distress. comfortable, Behavior is calm, cooperative. ss Neuro: Level of Consciousness is awake, alert, obeys commands, Oriented to person, place, time, situation. Respiratory: Airway is patent Respiratory effort is even, unlabored, Respiratory pattern is regular, symmetrical. EENT: Reports sore throat. Derm: Skin is intact, is healthy with good turgor, Skin is dry, Skin is pink, warm \T\ dry. normal. Musculoskeletal: Circulation, motion, and sensation intact. Range of motion: intact in all extremities, Swelling absent. Vital Signs: 08:51 BP 116 / 74; Pulse 82; Resp 16; Temp 98.6; Pulse Ox 100% ; Weight 77.56 kg; Height 5 ss ft. 4 in. (162.56 cm); Pain 3/10; 08:51 Body Mass Index 29.35 (77.56 kg, 162.56 cm) ED Course: 08:40 Patient arrived in ED. am2 08:49 Sergo Nation PA is PHCP. [facility] 08:49 Ray Martins MD is Attending Physician. [facility] 08:54 Triage completed. ss 08:54 Arm band placed on right wrist. ss 08:56 COVID-19/FLU A+B Sent. ss 08:56 Strep Sent. ss 10:21 Patient has correct armband on for positive identification. Bed in low position. Call ss light in reach. 10:21 No provider procedures requiring assistance completed. Patient did not have IV access ss during this emergency room visit. Administered Medications: No medications were administered Medication: 10:21 VIS not applicable for this client. ss Outcome: 10:12 Discharge ordered by . [facility] 10:21 Discharged to home ambulatory. 10:21 Condition: good 10:21 Discharge instructions given to patient, Instructed on discharge instructions, follow up and referral plans. medication usage, Demonstrated understanding of instructions, follow-up care, medications, Prescriptions given X 1. 10:23 Patient left the ED. ss Signatures: Sergo Nation PA PA jmm Smirch, Shelby, GIL RN ss Aarti Johnson
--- NOTE | 2022-10-14 10:12 | EDPHYS ---
Physician Documentation [facility] Name: Jhoana Em Age: 32 yrs Sex: Female : 1990 Arrival Date: 10/14/2022 Time: 08:40 Bed DIS3 Private MD: ED Physician Ray Martins HPI: 10/14 08:50 This 32 yrs old Female presents to ER via Ambulatory with complaints of Sore Throat. m 08:50 The patient presents with sore throat. Onset: The symptoms/episode began/occurred jmm gradually, 3 day(s) ago. This is a 32 year old female with a history of asthma that presents to the ED with complaints of sore throat, cough, beginning 3 days ago. Denies vomiting, diarrhea. . 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 - Social history:: Smoking status: Patient denies any tobacco usage or history of. ROS: 10:11 Constitutional: Positive for body aches, chills. jmm 10:11 ENT: Positive for sore throat. 10:11 Respiratory: Positive for cough. 10:11 All other systems are negative. Exam: 10:11 Constitutional: This is a well developed, well nourished patient who is awake, alert, jmm and in no acute distress. Head/Face: atraumatic. Eyes: EOMI, no conjunctival erythema appreciated ENT: Moist Mucus Membranes Neck: Trachea midline, Supple Chest/axilla: Normal chest wall appearance and motion. Cardiovascular: Regular rate and rhythm. No edema appreciated Respiratory: Normal respirations, no respiratory distress appreciated 10:11 Back: Normal ROM Skin: General appearance color normal MS/ Extremity: Moves all extremities, no obvious deformities appreciated, no edema noted to the lower extremities Neuro: Awake and alert Psych: Behavior is normal, Mood is normal, Patient is cooperative and pleasant 10:11 ENT: Posterior pharynx: erythema, that is mild. Vital Signs: 08:51 BP 116 / 74; Pulse 82; Resp 16; Temp 98.6; Pulse Ox 100% ; Weight 77.56 kg; Height 5 ss ft. 4 in. (162.56 cm); Pain 3/10; 08:51 Body Mass Index 29.35 (77.56 kg, 162.56 cm) ss MDM: 08:58 Patient medically screened. [facility] 10:12 Data reviewed: vital signs, nurses notes. Counseling: I had a detailed discussion with [facility] the patient and/or guardian regarding: the historical points, exam findings, and any diagnostic results supporting the discharge/admit diagnosis, lab results, the need for outpatient follow up, to return to the emergency department if symptoms worsen or persist or if there are any questions or concerns that arise at home. 10/14 08:49 Order name: COVID-19/FLU A+B; Complete Time: 10:02 [facility] 10/14 08:49 Order name: Strep; Complete Time: 09:29 [facility] 10/14 09:30 Order name: Throat Culture EDMN Administered Medications: No medications were administered Disposition Summary: 10/14/22 10:12 Discharge Ordered Location: Home [facility] Condition: Stable [facility] Diagnosis - Acute pharyngitis, unspecified [facility] Followup: [facility] - With: Private Physician - When: 2 - 3 days - Reason: Recheck today's complaints, Continuance of care, Re-evaluation by your physician Discharge Instructions: - Discharge Summary Sheet [facility] - Pharyngitis [facility] Forms: - Medication Reconciliation Form [facility] - Thank You Letter [facility] - Work release form [facility] - Antibiotic Education [facility] - Prescription Opioid Use [facility] Prescriptions: - Zithromax Z-Wai 250 mg Oral Tablet - take 1 tablet by ORAL route as directed for 5 days Day 1 - take two (2) tablets [facility] one time. Day 2, 3, 4 , 5 take one (1) tablet once daily.; 6 tablet; Refills: 0, Product Selection Permitted Addendum: 10/18/2022 15:00 Co-signature as Attending Physician, Ray Martins MD I agree with the assessment and c granados plan of care. Signatures: Dispatcher [employer] Ray Elliott MD MD cha Mickail, Joel, PA PA jmm Smirch, Shelby, GIL RN ss
[2022-10-14 10:29] VITALS: BP 116/74; TEMP 98.6; O2SAT 100
== END 2022-10-14 10:23 | disposition home or self-care (01) ==
LOC: ER 08:37
DX: J02.9 Acute pharyngitis, unspecified (principal); Z20.822 Contact with and (suspected) exposure to COVID-19; Z88.3 Allergy status to other anti-infective agents
CPT/HCPCS: 0240U; 87070; 87081; 99283